=== PATIENT | female | born 1990 | race Caucasian/White ===

== ENCOUNTER 2016-07-18 10:14 | Emergency (ER) | payer OTHER ==
[2016-07-18 10:30] VITALS: BP 119/72; PULSE 99; TEMP 97.6; BMI 24.2
== END 2016-07-18 10:47 | disposition left against medical advice (07) ==
LOC: JERFT 10:14
DX: Z53.21 Procedure and treatment not carried out due to patient leaving prior to being seen by health care provider (principal)
CPT/HCPCS: 99281-25

== ENCOUNTER 2017-08-26 13:25 | Emergency (ER) | payer OTHER ==
[2017-08-26 13:43] VITALS: TEMP 97.6; BMI 24.8
--- NOTE | 2017-08-26 14:38 | PDOC ---
History of Present Illness <Junito Little - Last Filed: 08/26/17 16:51> - General History Source: Patient Exam Limitations: No Limitations - History of Present Illness Initial Comments: 08/26/17 16:29 The patient is a 8 weeks 27 year old female , with no significant past medical history, who presents to the emergency department, for a second evaluation of an ultrasound taken earlier today as an outpatient. The patient states she was seen earlier today at an outpatient clinic and had an ultrasound performed which showed IUP but no heart rate. The patient states she was told if she wanted a second opinion to come to the ED. She denies any recent vaginal bleeding or discharge. She denies any recent abdominal pain or cramping. She denies recent fevers, chills, headache or dizziness. She denies recent nausea, vomit, diarrhea or constipation. She denies recent dysuria, frequency, urgency or hematuria. She denies recent chest pain or shortness of breath. Allergies: Aspirin, Penicillins <Troy King - Last Filed: 08/26/17 16:59> - General Chief Complaint: Pain Stated Complaint: ABD PAIN (8 WKS ) Time Seen by Provider: 08/26/17 14:00 Past History - Past Medical History Asthma: No Cancer: No Cardiac Disorders: No COPD: No Diabetes: No HTN: No Seizures: No Thyroid Disease: No - Reproductive History (#): 1 Para: 0 Therapeutic (s) & number: No - Immunization History Td Vaccination: Yes Immunization Up to Date: Yes - Suicide/Smoking/Psychosocial Hx Smoking Status: No Smoking History: Never smoked Years of Tobacco Use: 0 Have you smoked in the past 12 months: No Number of Cigarettes Smoked Daily: 0 Cigars Per Day: 0 Information on smoking cessation initiated: No Hx Alcohol Use: No Drug/Substance Use Hx: No Substance Use Type: None Hx Substance Use Treatment: No <Junito Little - Last Filed: 08/26/17 16:51> <Troy King - Last Filed: 08/26/17 16:59> - Past Medical History Allergies/Adverse Reactions: Allergies Allergy/AdvReac Type Severity Reaction Status Date / Time aspirin Allergy Intermediate Rash Verified 08/26/17 13:41 Penicillins Allergy Mild Hives Verified 08/26/17 13:41 Home Medications: Ambulatory Orders NK [No Known Home Medication] 02/18/16 Review of Systems - Review of Systems Constitutional: No: Chills, Fever Respiratory: No: Cough, Shortness of Breath Cardiac (ROS): No: Chest Pain ABD/GI: No: Diarrhea, Nausea, Vomiting : No: Dysuria, Frequency All Other Systems: Reviewed and Negative <Junito Little - Last Filed: 08/26/17 16:51> *Physical Exam - Vital Signs Last Vital Signs Temp Pulse Resp BP Pulse Ox 97.6 F 75 18 101/58 100 08/26/17 13:41 08/26/17 13:41 08/26/17 13:41 08/26/17 13:41 08/26/17 13:41 <Junito Little - Last Filed: 08/26/17 16:51> - Vital Signs Last Vital Signs Temp Pulse Resp BP Pulse Ox 97.6 F 75 18 101/58 100 08/26/17 13:41 08/26/17 13:41 08/26/17 13:41 08/26/17 13:41 08/26/17 13:41 - Physical Exam Comments: 08/26/17 16:30 GENERAL: The patient is awake, alert, and fully oriented, in no acute distress. HEAD: Normal with no signs of trauma. EYES: Pupils equal, round and reactive to light, extraocular movements intact, sclera anicteric, conjunctiva clear with no pallor. ENT: Ears normal, nares patent, oropharynx clear without exudates. Moist mucous membranes. NECK: Normal range of motion, supple without lymphadenopathy, JVD, or masses. LUNGS: Breath sounds equal, clear to auscultation bilaterally. No wheeze/ crackles. HEART: Regular rate and rhythm, normal S1 and S2 without murmur or rub. ABDOMEN: Soft/nontender/nondistended. BS wnl. No guarding or rebound. No palpable masses. No hepatosplenomegaly. EXTREMITIES: Normal range of motion, no edema. No clubbing or cyanosis. No cords, erythema, or tenderness. NEUROLOGICAL: Cranial nerves II through XII grossly intact. Normal speech, normal gait. PSYCH: Normal mood, normal affect. SKIN: Warm, Dry, normal turgor, no rashes or lesions noted. <Troy King - Last Filed: 08/26/17 16:59> ED Treatment Course - LABORATORY CBC & Chemistry Diagram: 08/26/17 14:40 <Nabor Littlefaele - Last Filed: 08/26/17 16:51> - LABORATORY CBC & Chemistry Diagram: 08/26/17 14:40 - ADDITIONAL ORDERS Additional order review: Laboratory Results 08/26/17 08/26/17 08/26/17 14:55 14:40 14:40 Beta HCG, Quant [id number] Urine Color Ltyellow Urine Appearance Clear Urine pH 6.0 Ur Specific [place] 1.023 Urine Protein Negative Urine Glucose (UA) Negative Urine Ketones Negative Urine Blood Negative Urine Nitrite Negative Urine Bilirubin Negative Urine Urobilinogen Negative Ur Leukocyte Esterase Trace Urine WBC (Auto) 2 Urine RBC (Auto) <1 Ur Epithelial Cells Rare Urine Mucus Rare Urine HCG, Qual Positive Blood Type O POSITIVE Antibody Screen Negative 08/26/17 14:40 RBC 4.30 MCV 81.8 MCHC 33.9 RDW 14.2 MPV 10.7 Neutrophils % 65.2 Lymphocytes % 28.6 D Monocytes % 5.1 Eosinophils % 0.6 Basophils % 0.5 - RADIOLOGY Radiograph Interpretation: 08/26/17 16:58 EXAM#: TYPE/EXAM: RESULT: [id number] US/TRANSVAGINAL US PREG HISTORY PROVIDED: evaluation. Real time examination of the pelvis arising both the transabdominal and transvaginal probes demonstrates the following: There is a single intrauterine with crown-rump measurements corresponding to a gestational age of 7 weeks 1 day. No heart motion was detected and this is suspicious for demise. Correlation with serial beta subunit hCG levels and follow-up ultrasonography is recommended. There is a small fluid collection adjacent to the gestational sac consistent with a subchorionic bleed. The ovaries are normal in size and texture with no adnexal masses or free pelvic fluid collections. IMPRESSION: Suspected demise of 7 weeks 1 day gestational age. Clinical and laboratory correlation and follow-up ultrasonography recommended. Please see above discussion. Reported By: Shawn Nolasco MD <Troy King - Last Filed: 08/26/17 16:59> Medical Decision Making - Medical Decision Making 08/26/17 15:36 A portion of this note was documented by scribe services under my direction. I have reviewed the details of the note, within reason, and agree with the documentation with the following case summary and management plan written by me. 27-year-old female LMP about 8 weeks presents for second opinion of outpatient ultrasound performed today that showed IUP but no heart rate. This was second ultrasound showing no heart rate, presents here for second opinion. Patient has no complaints of cramping or bleeding. Vital signs stable Exam is normal without abdominal tenderness or palpable mass 27-year-old female LMP about 8 weeks with possible incomplete miscarriage, first trimester. Check hCG Check ultrasound Discussed options and follow-up criteria 08/26/17 15:55 Labs and urinalysis are within normal limits, hCG 52,000, ultrasound pending. 08/26/17 16:51 Ultrasound shows IUP but no heart rate, concerning for demise and consistent with previous ultrasound performed at Dr. Alejandra's office. Patient made aware, agrees with discharge plan at this time and follow-up with the UTILITY INSPECTOR office for further instructions. Aware that may have spontaneous miscarriage versus possible need for D&C. <Junito Little - Last Filed: 08/26/17 16:51> *DC/Admit/Observation/Transfer <Junito Little - Last Filed: 08/26/17 16:51> - Attestations Scribe Attestion: 08/26/17 16:32 Documentation prepared by Troy King, acting as medical staff services coordinator for Junito Little MD. <Troy King - Last Filed: 08/26/17 16:59> Diagnosis at time of Disposition: Miscarriage - Discharge Dispostion Disposition: HOME Condition at time of disposition: Stable - Referrals Referrals: Brendon Krishna MD [Primary Care Provider] - Juan Ramon Magaña MD [Staff Physician] - - Patient Instructions Printed Discharge Instructions: DI for Miscarriage Additional Instructions: Activity as tolerated. Stay hydrated. Tylenol 1000 mg every 8 hours and/or ibuprofen 600 mg every 8 hours as needed for pain. An ultrasound today confirms no heartbeat, which is concerning for miscarriage. As discussed, you may have a heavy period or you may need to see her UTILITY INSPECTOR for further intervention. You should follow up with your UTILITY INSPECTOR as soon as possible regarding today's emergency department visit. Call tomorrow for further instructions. Return to the emergency department for any new or concerning symptoms, particularly severe pain or bleeding, fevers or chills, discharge.
[2017-08-26 14:56] LABS: BASO % 0.5 % (0-2.0); EOS % 0.6 % (0-4.5); HEMATOCRIT 35.2 % (32.4-45.2); HEMOGLOBIN 11.9 GM/dL (10.7-15.3); LYMPH % 28.6 % (8-40); MCH 27.7 pg (25.7-33.7); MCHC 33.9 g/dl (32.0-36.0); MEAN CELL VOLUME 81.8 fl (80-96); MEAN PLT VOLUME 10.7 fl (7.5-11.1); MONO % 5.1 % (3.8-10.2); NEUT % 65.2 % (42.8-82.8); PLATELET COUNT 201 K/MM3 (134-434); RDW 14.2 % (11.6-15.6); WHITE BLOOD COUNT 11.4 K/mm3 (4.0-10.0)
[2017-08-26 15:15] LABS: HCG,QUALITATIVE URINE POSITIVE
[2017-08-26 15:20] LABS: URINE APPEARANCE CLEAR; URINE BILIRUBIN NEGATIVE (NEGATIVE); URINE BLOOD NEGATIVE (NEGATIVE); URINE COLOR LTYELLOW; URINE GLUCOSE (UA) NEGATIVE (NEGATIVE); URINE KETONE NEGATIVE (NEGATIVE); URINE LEUK ESTERASE TRACE (NEGATIVE); URINE NITRITE NEGATIVE (NEGATIVE); URINE PROTEIN NEGATIVE (NEGATIVE); URINE UROBILINOGEN NEGATIVE mg/dL (0.2-1.0)
[2017-08-26 15:48] LABS: EPI CELLS RARE /HPF (FEW); URINE MUCUS RARE
[2017-08-26 17:00] VITALS: BP 102/57; PULSE 81
== END 2017-08-26 17:01 | disposition home or self-care (01) ==
LOC: JER 13:25
DX: O26.891 Other specified pregnancy related conditions, first trimester (principal); O02.1 Missed abortion; Z3A.01 Less than 8 weeks gestation of pregnancy
CPT/HCPCS: 36415; 76817-TC; 81003; 81015; 84702; 84703; 85025; 86850; 86900; 86901; 99282-25

== ENCOUNTER 2017-08-28 10:49 | Emergency (ER) | payer OTHER ==
[2017-08-28 11:03] VITALS: BMI 24.8
[2017-08-28] MEDS ORDERED: ACETAMINOPHEN 325 MG TABLET (FP) PO ONE (12:09)
[2017-08-28] MEDS ORDERED: METOCLOPRAMIDE HCL INJECTION 10 MG/2 ML VIAL IVPB ONE (12:09)
--- NOTE | 2017-08-28 12:12 | PDOC ---
History of Present Illness - General Chief Complaint: Pain, Acute Stated Complaint: MISCARRIAGE COMPLICATIONS Time Seen by Provider: 08/28/17 12:07 History Source: Patient - History of Present Illness Timing/Duration: reports: constant Quality: reports: moderate, cramping Past History - Past Medical History Allergies/Adverse Reactions: Allergies Allergy/AdvReac Type Severity Reaction Status Date / Time aspirin Allergy Intermediate Rash Verified 08/28/17 10:58 Penicillins Allergy Mild Hives Verified 08/28/17 10:58 Home Medications: Ambulatory Orders NK [No Known Home Medication] 02/18/16 Asthma: No Cancer: No Cardiac Disorders: No COPD: No Diabetes: No HTN: No Seizures: No Thyroid Disease: No Other medical history: DENIES. - Reproductive History (#): 1 Para: 0 Therapeutic (s) & number: No - Immunization History Td Vaccination: Yes Immunization Up to Date: Yes - Suicide/Smoking/Psychosocial Hx Smoking Status: No Smoking History: Never smoked Years of Tobacco Use: 0 Have you smoked in the past 12 months: No Number of Cigarettes Smoked Daily: 0 Cigars Per Day: 0 Hx Alcohol Use: No Drug/Substance Use Hx: No Substance Use Type: None Hx Substance Use Treatment: No Review of Systems - Review of Systems Constitutional: No: Chills, Fever ABD/GI: Yes: Abdominal cramping. No: Nausea, Vomiting : No: Dysuria, Discharge, Flank Pain *Physical Exam - Vital Signs Last Vital Signs Temp Pulse Resp BP Pulse Ox 98.1 F 76 19 114/73 100 08/28/17 10:59 08/28/17 10:59 08/28/17 10:59 08/28/17 10:59 08/28/17 10:59 - Physical Exam General Appearance: Yes: Appropriately Dressed. No: Apparent Distress HEENT: positive: Normal Voice Neck: positive: Supple Respiratory/Chest: negative: Respiratory Distress Gastrointestinal/Abdominal: positive: Tender (to lower abd diffusely), Soft Musculoskeletal: negative: CVA Tenderness Integumentary: positive: Dry, Warm Neurologic: positive: Fully Oriented, Alert, Normal Mood/Affect ED Treatment Course - LABORATORY CBC & Chemistry Diagram: 08/28/17 12:17 08/28/17 15:00 Medical Decision Making - Medical Decision Making 08/28/17 12:10 7-year-old female, , diagnosed with demise at 7 weeks on ultrasound 2 days ago and given OB follow-up. Beta was >50 K. Patient had no abdominal pain or bleeding at the time but now c/o lower abd cramping x 3 days. No vag bleed, dysuria, n/v/f/c. Has not yet had a chance to see her OB See exam Possibly missed AB @ 7weeks w/ abd pain No vag bleed Possible demise as no FHR on US in ED 2 days ago w/ beta>50K Stable in ED -labs and US -OB c/s 08/28/17 14:40 Beta and ultrasound roughly unchanged from previous visit with IUP at 7 weeks w / no FHR and beta of ~53 K. Patient remains stable with no abdominal pain or vaginal bleed. Will consult with OB for further recommendations 08/28/17 15:[address] Romano who states patient can follow-up with her in the office tomorrow at 10 AM to arrange possible suction D&C *DC/Admit/Observation/Transfer Diagnosis at time of Disposition: Missed - Discharge Dispostion Disposition: HOME Condition at time of disposition: Good - Referrals Referrals: Brendon Krishna MD [Primary Care Provider] - - Patient Instructions Printed Discharge Instructions: Miscarriage, Dealing With Miscarriage Additional Instructions: Please follow-up with Dr. Florinda Romano of [facility] tomorrow at [address] Romano's office is located at [address] [place] [address], [place] [address], [place] [address]. Phone number is [phone] - Post Discharge Activity
[2017-08-28] MEDS ORDERED: METOCLOPRAMIDE HCL INJECTION 10 MG/2 ML VIAL ONE (12:38)
[2017-08-28] MEDS ORDERED: ACETAMINOPHEN 325 MG TABLET (FP) ONE (12:38)
[2017-08-28 12:53] LABS: BASO % 0.6 % (0-2.0); EOS % 1.7 % (0-4.5); HEMATOCRIT 32.9 % (32.4-45.2); HEMOGLOBIN 11.5 GM/dL (10.7-15.3); MCH 28.7 pg (25.7-33.7); MCHC 35.1 g/dl (32.0-36.0); MEAN CELL VOLUME 81.7 fl (80-96); MEAN PLT VOLUME 10.5 fl (7.5-11.1); MONO % 5.8 % (3.8-10.2); NEUT % 64.9 % (42.8-82.8); PLATELET COUNT 205 K/MM3 (134-434); RBC 4.02 M/mm3 (3.60-5.2); RDW 14.5 % (11.6-15.6); WHITE BLOOD COUNT 9.8 K/mm3 (4.0-10.0)
--- NOTE | 2017-08-28 12:53 | PDOC ---
*Physical Exam - Vital Signs Last Vital Signs Temp Pulse Resp BP Pulse Ox 98.1 F 76 19 114/73 100 08/28/17 10:59 08/28/17 10:59 08/28/17 10:59 08/28/17 10:59 08/28/17 10:59 - Physical Exam Comments: 08/28/17 12:53 The patient was examined by [MAKI Hammond] under my direct supervision. I personally evaluated the patient. I concur with the above findings and the plan of care. ED Treatment Course - LABORATORY CBC & Chemistry Diagram: 08/28/17 12:17 - Medications Given in the ED: ED Medications Discontinued Medications Generic Name Dose Route Start Last Admin Trade Name Freq PRN Reason Stop Dose Admin Acetaminophen 650 mg 08/28/17 12:09 08/28/17 12:43 Tylenol - PO 08/28/17 12:10 650 mg ONCE ONE Administration Metoclopramide HCl 10 mg 08/28/17 12:09 08/28/17 12:43 Reglan Injection - IVPB 08/28/17 12:10 10 mg ONCE ONE Administration *DC/Admit/Observation/Transfer - Referrals Referrals: Brendon Krishna MD [Primary Care Provider] - - Patient Instructions - Post Discharge Activity
[2017-08-28 12:59] LABS: INR 1.03 (0.82-1.09); PROTHROMBIN TIME (PATIENT) 11.6 SEC (9.98-11.88)
[2017-08-28 13:31] LABS: URINE APPEARANCE CLEAR; URINE BILIRUBIN NEGATIVE (NEGATIVE); URINE BLOOD NEGATIVE (NEGATIVE); URINE COLOR LTYELLOW; URINE GLUCOSE (UA) NEGATIVE (NEGATIVE); URINE KETONE NEGATIVE (NEGATIVE); URINE LEUK ESTERASE TRACE (NEGATIVE); URINE NITRITE NEGATIVE (NEGATIVE); URINE PROTEIN NEGATIVE (NEGATIVE); URINE UROBILINOGEN NEGATIVE mg/dL (0.2-1.0)
[2017-08-28 13:37] LABS: EPI CELLS RARE /HPF (FEW); URINE MUCUS RARE
[2017-08-28 15:27] LABS: ALBUMIN 3.3 g/dl (3.4-5.0); ALK PHOS 57 U/L (45-117); ANION GAP 8 (8-16); BILIRUBIN,TOTAL 0.4 mg/dL (0.2-1.0); BLOOD UREA NITROGEN 10 mg/dL (7-18); CHLORIDE 107 mmol/L (98-107); CO2 21 mmol/L (21-32); CREATININE 0.6 mg/dL (0.55-1.02); GLUCOSE,RANDOM 80 mg/dL (74-106); POTASSIUM 3.8 mmol/L (3.5-5.1); SGOT/AST 10 U/L (15-37); SGPT/ALT 12 U/L (12-78); SODIUM 136 mmol/L (136-145); TOT PROT 6.2 g/dl (6.4-8.2)
[2017-08-28 15:50] VITALS: BP 127/78; PULSE 87; TEMP 98.6
== END 2017-08-28 15:50 | disposition home or self-care (01) ==
LOC: JER 10:49
PROC: 3E033GC Introduction of Other Therapeutic Substance into Peripheral Vein, Percutaneous Approach (ICD-10-PCS; principal; 2017-08-28)
DX: O02.1 Missed abortion (principal)
CPT/HCPCS: 36415; 76817-TC; 80053; 81003; 81015; 84702; 85025; 85610; 86850; 86900; 86901; 87491; 87591; 99283-25

== ENCOUNTER 2017-08-29 13:24 | Day surgery (SDC) | payer OTHER ==
[2017-08-29 13:55] VITALS: BMI 25.0
[2017-08-29] MEDS ORDERED: DEXAMETHASONE SOD PHOSPHATE 4 MG/1 ML VIAL ONE (16:35)
[2017-08-29] MEDS ORDERED: PROPOFOL 20 ML ONE (16:35)
[2017-08-29] MEDS ORDERED: MIDAZOLAM HCL 2 MG/2 ML SINGLE DOSE VIAL ONE (16:35)
[2017-08-29] MEDS ORDERED: LIDOCAINE HCL 2% 100 MG/5 ML DISP.SYRIN ONE (16:35)
[2017-08-29] MEDS ORDERED: ACETAMINOPHEN 325 MG TABLET (FP) PO PRN (17:20)
--- NOTE | 2017-08-29 17:20 | HP ---
Admitting History and Physical - Admission Chief Complaint: Missed History of Present Illness: 27 yo @ 7 weeks gestation seen in office today after an ER visit the day prior where she was diagnosed with missed . A suction D&C was scheduled. She's now pre op for suction D&C. History Source: Patient Limitations to Obtaining History: No Limitations - Past Medical History ...LMP: 09/18/12 ...: Yes ...: 2 ...Para: 1 Heme/Onc: Yes: Sickle Cell Trait - Past Surgical History Past Surgical History: Yes: None - Smoking History Smoking history: Never smoked Have you smoked in the past 12 months: No Aproximately how many cigarettes per day: 0 - Alcohol/Substance Use Hx Alcohol Use: No History of Substance Use: reports: None - Social History History of Recent Travel: No Home Medications - Allergies Allergies/Adverse Reactions: Allergies Allergy/AdvReac Type Severity Reaction Status Date / Time aspirin Allergy Intermediate Rash Verified 08/28/17 10:58 Penicillins Allergy Mild Hives Verified 08/28/17 10:58 - Home Medications Home Medications: Ambulatory Orders NK [No Known Home Medication] 02/18/16 Review of Systems - Review of Systems Constitutional: reports: No Symptoms Eyes: reports: No Symptoms HENT: reports: No Symptoms Neck: reports: No Symptoms Cardiovascular: reports: No Symptoms Respiratory: reports: No Symptoms Gastrointestinal: reports: No Symptoms Genitourinary: reports: No Symptoms Breasts: reports: No Symptoms Reported Musculoskeletal: reports: No Symptoms Integumentary: reports: No Symptoms Neurological: reports: No Symptoms Endocrine: reports: No Symptoms Hematology/Lymphatic: reports: No Symptoms Psychiatric: reports: No Symptoms Pain Intensity: 0 Physical Examination Vital Signs: Vital Signs Temperature 98.0 F 08/29/17 13:39 Pulse Rate 59 L 08/29/17 13:39 Respiratory Rate 16 08/29/17 13:39 Blood Pressure 121/69 08/29/17 13:39 O2 Sat by Pulse Oximetry (%) 100 08/29/17 14:04 Constitutional: Yes: Well Nourished Eyes: Yes: Conjunctiva Clear HENT: Yes: Atraumatic Neck: Yes: Supple Cardiovascular: Yes: Regular Rate and Rhythm Respiratory: Yes: Regular Gastrointestinal: Yes: Normal Bowel Sounds Breast(s): Yes: WNL Musculoskeletal: Yes: WNL Neurological: Yes: Alert, Oriented ...Motor Strength: WNL Psychiatric: Yes: Alert, Oriented Assessment/Plan Missed Pre op for suction D&C Consent signed Anesthesia to see patient
[2017-08-29] MEDS ORDERED: KETOROLAC TROMETHAMINE 30 MG/1 ML VIAL ONE (17:22)
[2017-08-29] MEDS ORDERED: ONDANSETRON 4 MG/2 ML VIAL IVPUSH PRN (17:22)
--- NOTE | 2017-08-29 17:22 | OP ---
Operative Note - Note: Operative Date: 08/29/17 Pre-Operative Diagnosis: Missed Operation: Suction D&C Findings: Cervical os closed Intrauterine product of conception Post-Operative Diagnosis: Same as Pre-op Surgeon: Florinda Romano Anesthesia: General Specimens Removed: Product of conception Estimated Blood Loss (mls): 20
[2017-08-29] MEDS ORDERED: KETOROLAC TROMETHAMINE 30 MG/1 ML VIAL IVPUSH ONE (17:30)
[2017-08-29] MEDS ORDERED: LACTATED RINGERS SOLUTION 1,000 ML IV SCH (17:30)
[2017-08-29 18:16] VITALS: TEMP 98.4
[2017-08-29 19:09] VITALS: BP 126/84; PULSE 85
--- NOTE | 2017-09-02 13:25 | PATH ---
Surgical Pathology Report Patient Name: DANNIE RUEDA [facility]. Rec. #: [id number] /Age/Gender: 1990 (Age: 27) / F Account: [id number] Location: [facility] Taken: 08/30/2017 Received: 08/30/2017 Reported: 09/02/2017 Physicians: Florinda Romano M.D. Specimen(s) Received PRODUCTS OF CONCEPTION Clinical History Missed Final Diagnosis Uterine contents, evacuation: chorionic villi consistent with products of conception. Electronically Signed Jeanmarie Gil M.D. Gross Description Received in formalin labeled "contents of conception," is a 9.0 x 7.0 x 0.9 cm aggregate of royal-brown soft tissue fragments. Villous tissue is identified. No somatic tissue is identified. A commissary representative portion is submitted in one cassette. /08/30/201708/30/2017
== END 2017-08-29 19:09 | disposition home or self-care (01) ==
LOC: JASU-SURG 13:24
PROVIDERS: ATTEND Obstetrics & Gynecology
PROC: 10D17ZZ Extraction of Products of Conception, Retained, Via Natural or Artificial Opening (ICD-10-PCS; principal; 2017-08-29 16:00)
DX: O02.1 Missed abortion (principal)
CPT/HCPCS: 88305-TC; 94760

== ENCOUNTER 2018-01-23 10:47 | Emergency (ER) | payer OTHER ==
[2018-01-23 10:58] VITALS: BMI 26.3
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
[2018-01-23 12:26] LABS: HEMATOCRIT 35.6 % (32.4-45.2); HEMOGLOBIN 12.3 GM/dL (10.7-15.3); MCH 27.7 pg (25.7-33.7); MCHC 34.6 g/dl (32.0-36.0); MEAN CELL VOLUME 80.1 fl (80-96); MEAN PLT VOLUME 10.2 fl (7.5-11.1); PLATELET COUNT 242 K/MM3 (134-434); RBC 4.45 M/mm3 (3.60-5.2); RDW 15.9 % (11.6-15.6); WHITE BLOOD COUNT 8.5 K/mm3 (4.0-10.0)
[2018-01-23 12:36] LABS: URINE APPEARANCE CLEAR; URINE BILIRUBIN NEGATIVE (<2.0 mg/dL); URINE COLOR LTYELLOW; URINE GLUCOSE (UA) NEGATIVE (NEGATIVE); URINE KETONE NEGATIVE (NEGATIVE); URINE LEUK ESTERASE NEGATIVE (NEGATIVE); URINE NITRITE NEGATIVE (NEGATIVE); URINE PROTEIN NEGATIVE (NEGATIVE); URINE UROBILINOGEN NEGATIVE mg/dL (0.2-1.0)
[2018-01-23 12:45] LABS: HCG,QUALITATIVE URINE POSITIVE
[2018-01-23 12:47] LABS: ALBUMIN 3.6 g/dl (3.4-5.0); ANION GAP 9 (8-16); BILIRUBIN,TOTAL 0.5 mg/dL (0.2-1.0); BLOOD UREA NITROGEN 8 mg/dL (7-18); CALCIUM 8.6 mg/dL (8.5-10.1); CHLORIDE 105 mmol/L (98-107); CO2 23 mmol/L (21-32); CREATININE 0.6 mg/dL (0.55-1.02); GLUCOSE,RANDOM 76 mg/dL (74-106); SGPT/ALT 21 U/L (12-78); SODIUM 137 mmol/L (136-145); TOT PROT 7.1 g/dl (6.4-8.2)
[2018-01-23 13:08] LABS: ALK PHOS 64 U/L (45-117)
[2018-01-23 13:41] LABS: POTASSIUM 4.5 mmol/L (3.5-5.1); SGOT/AST 19 U/L (15-37)
[2018-01-23 16:16] VITALS: BP 121/70; PULSE 67; TEMP 97.2
== END 2018-01-23 16:15 | disposition home or self-care (01) ==
LOC: JER 10:47
DX: O26.891 Other specified pregnancy related conditions, first trimester (principal); O02.1 Missed abortion; Z3A.01 Less than 8 weeks gestation of pregnancy
CPT/HCPCS: 36415; 76817-TC; 80053; 81003; 84702; 84703; 85027; 86850; 86900; 86901; 99282-25

== ENCOUNTER 2018-05-04 15:23 | Emergency (ER) | payer OTHER ==
[2018-05-04 15:34] VITALS: BP 135/86; PULSE 63; TEMP 98.7; BMI 25.4
[2018-05-04 16:32] LABS: BASO % 0.8 % (0-2.0); HEMATOCRIT 36.9 % (32.4-45.2); HEMOGLOBIN 13.1 GM/dL (10.7-15.3); MCH 28.6 pg (25.7-33.7); MCHC 35.5 g/dl (32.0-36.0); MEAN CELL VOLUME 80.5 fl (80-96); MEAN PLT VOLUME 9.9 fl (7.5-11.1); MONO % 6.9 % (3.8-10.2); NEUT % 62.3 % (42.8-82.8); PLATELET COUNT 285 K/MM3 (134-434); RBC 4.58 M/mm3 (3.60-5.2); RDW 14.3 % (11.6-15.6); WHITE BLOOD COUNT 9.6 K/mm3 (4.0-10.0)
[2018-05-04 16:34] LABS: URINE APPEARANCE CLEAR; URINE BILIRUBIN NEGATIVE (<2.0 mg/dL); URINE COLOR LTYELLOW; URINE GLUCOSE (UA) NEGATIVE (NEGATIVE); URINE KETONE NEGATIVE (NEGATIVE); URINE LEUK ESTERASE 1+ (NEGATIVE); URINE NITRITE NEGATIVE (NEGATIVE); URINE PROTEIN NEGATIVE (NEGATIVE); URINE UROBILINOGEN NEGATIVE mg/dL (0.2-1.0)
--- NOTE | 2018-05-04 16:36 | PDOC ---
History of Present Illness - General Chief Complaint: Chest Pain Stated Complaint: CHEST PRESSURE Time Seen by Provider: 05/04/18 15:48 History Source: Patient - History of Present Illness Presenting Symptoms: Chest Pain Past History - Past Medical History Allergies/Adverse Reactions: Allergies Allergy/AdvReac Type Severity Reaction Status Date / Time aspirin Allergy Intermediate Rash Verified 05/04/18 15:34 Penicillins Allergy Mild Hives Verified 05/04/18 15:34 Home Medications: Ambulatory Orders Prenat 115/Iron Fum/Folic/Dss [ 19 Tablet] 1 each PO DAILY 01/24/18 Anemia: Yes Asthma: No Cancer: No Cardiac Disorders: No CVA: No COPD: No CHF: No Dementia: No Diabetes: No GI Disorders: No Disorders: No HTN: No Hypercholesterolemia: No Liver Disease: No Seizures: No Thyroid Disease: No - Reproductive History (#): 1 Para: 0 Therapeutic (s) & number: No - Immunization History Td Vaccination: Yes Immunization Up to Date: Yes - Suicide/Smoking/Psychosocial Hx Smoking Status: No Smoking History: Never smoked Years of Tobacco Use: 0 Have you smoked in the past 12 months: No Number of Cigarettes Smoked Daily: 0 Cigars Per Day: 0 Hx Alcohol Use: No Drug/Substance Use Hx: No Substance Use Type: None Hx Substance Use Treatment: No Cardiac Specific PMH - Complaint Specific PMHX Pacemaker: No Review of Systems - Review of Systems Constitutional: No: Chills, Fever Respiratory: Yes: Shortness of Breath. No: Cough Cardiac (ROS): Yes: Chest Pain. No: Lightheadedness, Palpitations, Syncope Integumentary: Yes: Bruising *Physical Exam - Vital Signs Last Vital Signs Temp Pulse Resp BP Pulse Ox 98.7 F 63 18 135/86 100 05/04/18 15:28 05/04/18 15:28 05/04/18 15:28 05/04/18 15:28 05/04/18 15:28 - Physical Exam General Appearance: Yes: Appropriately Dressed. No: Apparent Distress HEENT: positive: Normal Voice Neck: positive: Supple Respiratory/Chest: positive: Lungs Clear, Normal Breath Sounds. negative: Respiratory Distress Cardiovascular: positive: Regular Rate, S1, S2 Integumentary: positive: Dry, Warm, Bruising (large ecchymosis to proximal inner R thigh, several smaller similar lesions to LLE and torso) Neurologic: positive: Fully Oriented, Alert, Normal Mood/Affect Heart Score/ECG Review - ECG Intrepretation Comment:: 05/04/18 16:52 Twelve-lead EKG was performed and reviewed by me. There is normal sinus rhythm with a normal rate. The axis is normal. The intervals are normal. There are no ST or T wave abnormalities. Impression: Normal twelve-lead EKG ED Treatment Course - LABORATORY CBC & Chemistry Diagram: 05/04/18 16:18 05/04/18 16:18 - ADDITIONAL ORDERS Additional order review: Laboratory Results 05/04/18 05/04/18 05/04/18 16:18 16:18 16:18 PT with INR 12.50 INR 1.06 Sodium 140 Potassium 4.1 Chloride 108 H Carbon Dioxide 26 Anion Gap 7 L BUN 14 Creatinine 1.1 Creat Clearance w eGFR 59.14 Random Glucose 81 Calcium 8.9 Total Bilirubin 0.4 AST 15 ALT 20 Alkaline Phosphatase 83 Total Protein 7.1 Albumin 3.9 Urine Color Ltyellow Urine Appearance Clear Urine pH 6.0 Ur Specific [place] 1.019 Urine Protein Negative Urine Glucose (UA) Negative Urine Ketones Negative Urine Blood Negative Urine Nitrite Negative Urine Bilirubin Negative Urine Urobilinogen Negative Ur Leukocyte Esterase 1+ H Urine WBC (Auto) 4 Urine RBC (Auto) 6 Ur Epithelial Cells Rare Urine Mucus Rare Urine HCG, Qual Negative 05/04/18 16:18 RBC 4.58 MCV 80.5 MCHC 35.5 RDW 14.3 MPV 9.9 Neutrophils % 62.3 Lymphocytes % 28.0 Monocytes % 6.9 Eosinophils % 2.0 D Basophils % 0.8 - RADIOLOGY Radiology Studies Ordered: Category Date Time Status CHEST PA & LAT [RAD] Stat Radiology 05/04/18 16:13 Taken Medical Decision Making - Medical Decision Making 05/04/18 16:32 28-year-old F, denies any past medical history, here with multiple complaints including chest pain that started today, substernal, pressure-like in nature, intermittent w/ no exacerbating or alleviating factors. Also reports possible shortness of breath. No diaphoresis, nausea or vomiting. Had similar pain last week that self resolved. No illicit drug use, and no obvious risk factors for DVT/PE. No significant family history. Patient also complaining of spontaneous bruising throughout body 1-2 weeks. No history of same. Denies new medications, change in diet or significant fmhx. See exam CP Recurrent No illicit drug use No sig fmhx PERCs out Stable w/ unremarkable exam -ekg -cxr Spontaneous ecchymosis Multiple ecchymosis of varying sizes throughout body (UE/LE and torso), some painful to touch -labs pending 05/04/18 17:11 EKG/CXR and labs all wnl. Pt stable for discharge to f/u with her PMD for further evaluation *DC/Admit/Observation/Transfer Diagnosis at time of Disposition: Spontaneous ecchymoses Chest pain Qualifiers: Chest pain type: unspecified Qualified Code(s): R07.9 - Chest pain, unspecified - Discharge Dispostion Disposition: HOME Condition at time of disposition: Good - Referrals Referrals: Brendon Krishna MD [Primary Care Provider] - - Patient Instructions Additional Instructions: The cause of your symptoms are unclear at this time as your labs, EKG and chest x-ray were all normal. If her symptoms persist, please make an appointment to be further evaluated by your PMD - Post Discharge Activity
[2018-05-04 16:43] LABS: EPI CELLS RARE /HPF (FEW); URINE MUCUS RARE
[2018-05-04 16:44] LABS: INR 1.06 (0.83-1.09); PROTHROMBIN TIME (PATIENT) 12.5 SEC (9.7-13.0)
[2018-05-04 16:52] LABS: HCG,QUALITATIVE URINE Negative
[2018-05-04 16:54] LABS: ALBUMIN 3.9 g/dl (3.4-5.0); ALK PHOS 83 U/L (45-117); ANION GAP 7 MMOL/L (8-16); BILIRUBIN,TOTAL 0.4 mg/dL (0.2-1); BLOOD UREA NITROGEN 14 mg/dL (7-18); CALCIUM 8.9 mg/dL (8.5-10.1); CHLORIDE 108 mmol/L (98-107); CO2 26 mmol/L (21-32); CREATININE 1.1 mg/dL (0.55-1.3); GLUCOSE,RANDOM 81 mg/dL (74-106); POTASSIUM 4.1 mmol/L (3.5-5.1); SGOT/AST 15 U/L (15-37); SGPT/ALT 20 U/L (13-61); SODIUM 140 mmol/L (136-145); TOT PROT 7.1 g/dl (6.4-8.2)
--- NOTE | 2018-05-05 10:36 | EKG ---
Test Reason : Blood Pressure : / mmHG Vent. Rate : 065 BPM Atrial Rate : 065 BPM P-R Int : 150 ms QRS Dur : 086 ms QT Int : 418 ms P-R-T Axes : 004 082 055 degrees QTc Int : 434 ms NORMAL SINUS RHYTHM NORMAL ECG NO PREVIOUS ECGS AVAILABLE Confirmed by BISHOP VIEYRA MD ([id number]) on 05/05/2018 10:36:12 AM Referred By: Confirmed By:BISHOP VIEYRA MD
== END 2018-05-04 17:15 | disposition home or self-care (01) ==
LOC: JERFT 15:23
DX: R07.9 Chest pain, unspecified (principal); R23.3 Spontaneous ecchymoses
CPT/HCPCS: 36415; 71046-TC-FY; 80053; 81003; 81015; 84703; 85025; 85610; 93005; 93010; 99281-25

== ENCOUNTER 2018-09-24 11:06 | Emergency (ER) | payer OTHER ==
[2018-09-24 11:22] VITALS: BP 118/66; PULSE 85; TEMP 97.9; BMI 27.1
[2018-09-24 12:38] LABS: EPI CELLS 8.4 /HPF (0-5); HYALINE CASTS 4 /hpf (0-8); URINE APPEARANCE CLOUDY; URINE BACTERIA 277.1 /hpf (NEGATIVE); URINE BILIRUBIN NEGATIVE (NEGATIVE); URINE COLOR YELLOW; URINE GLUCOSE (UA) NEGATIVE (NEGATIVE); URINE KETONE NEGATIVE (NEGATIVE); URINE LEUK ESTERASE 2+ (NEGATIVE); URINE NITRITE NEGATIVE (NEGATIVE); URINE PROTEIN NEGATIVE (NEGATIVE); URINE RBC 2 /hpf (0-4); URINE UROBILINOGEN 0.2 mg/dL (0.2-1.0); URINE WBC 37 /hpf (0-5)
--- NOTE | 2018-09-24 12:58 | PDOC ---
History of Present Illness - General Chief Complaint: Back Pain Stated Complaint: 15 WEEK W[place]/BACK PAIN Time Seen by Provider: 09/24/18 12:05 History Source: Patient Exam Limitations: No Limitations - History of Present Illness Associated Symptoms: denies: fever/chills Past History - Travel Traveled outside of the country in the last 30 days: No Close contact w/someone who was outside of country & ill: No - Past Medical History Allergies/Adverse Reactions: Allergies Allergy/AdvReac Type Severity Reaction Status Date / Time aspirin Allergy Intermediate Rash Verified 09/24/18 11:19 Penicillins Allergy Mild Hives Verified 09/24/18 11:19 Home Medications: Ambulatory Orders Prenat 115/Iron Fum/Folic/Dss [ 19 Tablet] 1 each PO DAILY 01/24/18 Acetaminophen 325 mg PO ACDIN 7 Days #30 tablet 09/24/18 Nitrofurantoin Monohyd/M-Cryst [Macrobid -] 100 mg PO BID #14 capsule 09/24/18 Anemia: Yes Asthma: No Cancer: No Cardiac Disorders: No CVA: No COPD: No CHF: No Dementia: No Diabetes: No GI Disorders: No Disorders: No HTN: No Hypercholesterolemia: No Liver Disease: No Seizures: No Thyroid Disease: No Other medical history: BACK PROBLEMS - Reproductive History (#): 1 Para: 0 Therapeutic (s) & number: No - Immunization History Td Vaccination: Yes Immunization Up to Date: Yes - Suicide/Smoking/Psychosocial Hx Smoking Status: No Smoking History: Never smoked Years of Tobacco Use: 0 Have you smoked in the past 12 months: No Number of Cigarettes Smoked Daily: 0 Cigars Per Day: 0 Hx Alcohol Use: No Drug/Substance Use Hx: No Substance Use Type: None Hx Substance Use Treatment: No Review of Systems - Review of Systems Constitutional: No: Chills, Fever ABD/GI: No: Abdominal Distended, Diarrhea, Difficulty Swallowing, Nausea, Vomiting : No: Burning, Dysuria, Discharge, Frequency, Flank Pain, Hematuria, Urgency Musculoskeletal: Yes: Back Pain. No: Joint Pain, Muscle Weakness, Neck Pain Neurological: No: Numbness, Paresthesia, Tingling, Tremors, Weakness, Unsteady Gait, Ataxia *Physical Exam - Vital Signs Last Vital Signs Temp Pulse Resp BP Pulse Ox 97.9 F 85 18 118/66 99 09/24/18 11:20 09/24/18 11:20 09/24/18 11:20 09/24/18 11:20 09/24/18 11:20 - Physical Exam General Appearance: Yes: Nourished Respiratory/Chest: positive: Lungs Clear, Normal Breath Sounds Cardiovascular: positive: Regular Rhythm, Regular Rate, S1, S2 Musculoskeletal: positive: Normal Inspection Integumentary: positive: Normal Color Neurologic: positive: fire investigation lieutenant II-XII NML intact, Fully Oriented, Alert ED Treatment Course - ADDITIONAL ORDERS Additional order review: Laboratory Results 09/24/18 12:11 Urine Color Yellow Urine Appearance Cloudy Urine pH 7.0 Ur Specific [place] 1.025 Urine Protein Negative Urine Glucose (UA) Negative Urine Ketones Negative Urine Blood Negative Urine Nitrite Negative Urine Bilirubin Negative Urine Urobilinogen 0.2 Ur Leukocyte Esterase 2+ H Urine WBC (Auto) 37 Urine RBC (Auto) 2 Urine Casts (Auto) 4 U Epithel Cells (Auto) 8.4 Urine Bacteria (Auto) 277.1 Medical Decision Making - Medical Decision Making 09/24/18 16:25 28y/o F 15wks with atrauamtic LBP radiating to L leg X 2 days, pt denies UTI sx, trauma, f/c, b/b incontinence or saddles anesthesia. She took some tylenol with little relief exam with + SLR @ 45 degrees on the left ua + leukos/bacterial given state, i will tx for UTI ucx sent Tylenol for sciatic pain *DC/Admit/Observation/Transfer Diagnosis at time of Disposition: Abnormal urine finding, Sciatica of left side - Discharge Dispostion Disposition: HOME Condition at time of disposition: Stable Decision to Admit order: No - Prescriptions Prescriptions: Acetaminophen 325 mg PO ACDIN 7 Days #30 tablet Nitrofurantoin Monohyd/M-Cryst [Macrobid -] 100 mg PO BID #14 capsule - Referrals - Patient Instructions Printed Discharge Instructions: DI for Back Pain With Sciatica Additional Instructions: Your Urine test was abnormal today. This could be a possible early urinary tract infection area and antibiotics as this sent to pharmacy. Please follow-up which V BELT INSPECTOR in the next 2-3 days for reassessment. Please return to the Emergency Department if worsening symptoms occurs. - Post Discharge Activity
== END 2018-09-24 13:20 | disposition home or self-care (01) ==
LOC: JERFT 11:06
DX: O26.892 Other specified pregnancy related conditions, second trimester (principal); M54.32 Sciatica, left side; Z3A.15 15 weeks gestation of pregnancy; R82.90 Unspecified abnormal findings in urine
CPT/HCPCS: 81003; 87086; 99281-25

== ENCOUNTER 2019-02-28 17:08 | Inpatient (IN) | payer OTHER ==
[2019-02-28] MEDS ORDERED: ELECTROLYTE-148 SOLN 1,000 ML IV SCH (17:15)
[2019-02-28] MEDS ORDERED: CLINDAMYCIN 900 MG PREMIX IVPB 900 MG/50 ML BAG IVPB STA (17:30)
[2019-02-28] MEDS ORDERED: CLINDAMYCIN PHOSPHATE 600 MG/4 ML VIAL ONE (17:37)
[2019-02-28 18:13] VITALS: BMI 33.5
[2019-02-28 18:49] LABS: BASO % 0.2 % (0-2.0); EOS % 0.6 % (0-4.5); HEMATOCRIT 35.1 % (32.4-45.2); HEMOGLOBIN 11.8 GM/dL (10.7-15.3); LYMPH % 17.7 % (8-40); MCH 27.6 pg (25.7-33.7); MCHC 33.7 g/dl (32.0-36.0); MEAN PLT VOLUME 10.7 fl (7.5-11.1); NEUT % 74.5 % (42.8-82.8); PLATELET COUNT 208 K/MM3 (134-434); RBC 4.27 M/mm3 (3.60-5.2); RDW 16.1 % (11.6-15.6); WHITE BLOOD COUNT 13.1 K/mm3 (4.0-10.0)
[2019-02-28 19:14] LABS: BLOOD UREA NITROGEN 9.6 mg/dL (7-18); CALCIUM 8.8 mg/dL (8.5-10.1); CREATININE 0.7 mg/dL (0.55-1.3)
[2019-02-28 19:16] LABS: INR 0.96 (0.83-1.09); PROTHROMBIN TIME (PATIENT) 11.3 SEC (9.7-13.0)
[2019-02-28 19:18] LABS: ACTIVATED PTT 28.4 SECONDS (25.2-36.5)
[2019-02-28] MEDS ORDERED: PROMETHAZINE HCL 25 MG/1 ML VIAL IVPB ONE (21:40)
[2019-02-28] MEDS ORDERED: BUTORPHANOL TARTRATE 1 MG/ML VIAL IVPB ONE (21:40)
[2019-02-28] MEDS ORDERED: BUTORPHANOL TARTRATE 1 MG/ML VIAL ONE ×2 (21:43)
[2019-02-28] MEDS ORDERED: PROMETHAZINE HCL 25 MG/1 ML VIAL ONE (21:44)
[2019-02-28] MEDS: CLINDAMYCIN 600MG PREMIX IVPB 600 MG/50 ML BAG IVPB SCH (23:30)
[2019-03-01] MEDS ORDERED: CLINDAMYCIN PHOSPHATE 600 MG/4 ML VIAL ONE (00:21)
[2019-03-01] MEDS ORDERED: FENTANYL/BUPIVACAINE/NS/PF - PCEA - 50 ML DISP.SYRIN EP ONE (00:42)
[2019-03-01] MEDS ORDERED: NALOXONE HCL 0.4 MG/ML VIAL IVPUSH PRN (01:29)
[2019-03-01] MEDS ORDERED: FENTANYL/BUPIVACAINE/NS/PF - PCEA - 50 ML DISP.SYRIN EP SCH (01:30)
--- NOTE | 2019-03-01 02:09 | HP ---
Past Medical History - Primary Care Physician PCP:: Florinda Romano - Admission Chief Complaint: SROM History of Present Illness: 29 yo edc 03/13/19 EGA 38.1 weeks with c/o of SROmat 430pm and labor NSVDx1 7 lbs GBS positive History Source: Patient Limitations to Obtaining History: No Limitations - Past Medical History ...: 4 ...Para: 1 ...Term: 1 ...: 0 ...Spon : 2 ...Induced : 0 ...Multiple Gestation: 0 ...EDC by [facility]: 03/13/19 Heme/Onc: Yes: Sickle Cell Trait - Past Surgical History Past Surgical History: Yes: None Hx Myomectomy: No Hx Transabdominal Cerclage: No - Smoking History Smoking history: Never smoked Have you smoked in the past 12 months: No Aproximately how many cigarettes per day: 0 - Alcohol/Substance Use Hx Alcohol Use: No History of Substance Use: reports: None - Social History Usual Living Arrangement: Yes: With Spouse History of Recent Travel: No Home Medications - Allergies Allergies/Adverse Reactions: Allergies Allergy/AdvReac Type Severity Reaction Status Date / Time aspirin Allergy Intermediate Rash Verified 02/28/19 18:05 Penicillins Allergy Mild Hives Verified 02/28/19 18:05 - Home Medications Home Medications: Ambulatory Orders Prenat 115/Iron Fum/Folic/Dss [ 19 Tablet] 1 each PO DAILY 01/24/18 Review of Systems - Review of Systems Constitutional: reports: No Symptoms Eyes: reports: No Symptoms HENT: reports: No Symptoms Neck: reports: No Symptoms Cardiovascular: reports: No Symptoms Respiratory: reports: No Symptoms Gastrointestinal: reports: No Symptoms Genitourinary: reports: No Symptoms Breasts: reports: No Symptoms Reported Musculoskeletal: reports: No Symptoms Integumentary: reports: No Symptoms Neurological: reports: No Symptoms Endocrine: reports: No Symptoms Hematology/Lymphatic: reports: No Symptoms Psychiatric: reports: No Symptoms Physical Exam - Maternity Vital Signs: Vital Signs Temperature 98.1 F 03/01/19 02:00 Pulse Rate 86 02/28/19 23:00 Respiratory Rate 20 02/28/19 23:00 Blood Pressure 123/86 02/28/19 23:00 O2 Sat by Pulse Oximetry (%) Constitutional: Yes: Well Nourished, No Distress Neck: Yes: WNL Lungs: Clear to auscultation Breast(s): Yes: WNL - Abdominal Exam/OB Fundal Height: 38 Number of Fetuses: Single Presentation: Vertex Contractions: Yes Category: I - Vaginal Exam/OB Dilatation (cm): 3 Amniotic Membrane Status: Ruptured Presentation: Vertex/Position Station: -1 - Physical Exam Musculoskeletal: Yes: WNL Extremities: Yes: WNL Edema: No Psychiatric: Yes: WNL, Alert, Oriented - Labs Lab Results: CBC, BMP 02/28/19 18:30 02/28/19 18:30 Problem List - Problems (1) Spontaneous rupture of amniotic membranes Code(s): OMD6619 - (2) 38 weeks gestation of Code(s): Z3A.38 - 38 WEEKS GESTATION OF (3) GBS (group B Streptococcus carrier), +RV culture, currently Code(s): O99.820 - STREPTOCOCCUS B CARRIER STATE COMPLICATING Assessment/Plan IUP at 38 week srom GBS positive Plan anticipate vaginal delivery agueda
--- NOTE | 2019-03-01 02:12 | PN ---
Ante-Partal Exam - Subjective Subjective: Pt with urge to push Vital Signs: Vital Signs Temperature 98.1 F 03/01/19 02:00 Pulse Rate 86 02/28/19 23:00 Respiratory Rate 20 02/28/19 23:00 Blood Pressure 123/86 02/28/19 23:00 O2 Sat by Pulse Oximetry (%) Bleeding: No Headache: No Visual changes: No Right upper quadrant pain: No - Contractions Contractions: Yes Regularity: Regular Intensity: Unaware Monitor Mode: External - Exam during Labor Variability: Moderate Category: I Monitor Accelerations: Present Monitor Decelerations: None Exam: Vaginal Dilatation (cm): 9 Effacement (%): 100 Amniotic Membrane Status: Ruptured Presentation: Vertex - Intrapartum Hemorrhage Risk Risk Score: 0 Risk Level: Low Risk - Assessment/Plan Assessment/Plan: IUP at 38 week GBS positive SROM Plan anticipate vaginal delivery
[2019-03-01] MEDS ORDERED: WITCH HAZEL 50% (TUCKS) 40 PAD/JAR PAD TP PRN (02:13)
[2019-03-01] MEDS ORDERED: BENZOCAINE 28 GM HEMORRHOIDAL OINTMENT PR PRN (02:13)
[2019-03-01] MEDS ORDERED: METHYLERGONOVINE MALEATE 0.2 MG/1 ML AMP IM PRN (02:13)
[2019-03-01] MEDS ORDERED: BISACODYL 10 MG SUPP.RECT RC PRN (02:13)
[2019-03-01] MEDS ORDERED: BENZOCAINE 20% 57 GM BOTTLE TP PRN (02:13)
[2019-03-01] MEDS ORDERED: IBUPROFEN 600 MG TABLET (FP) PO PRN (02:13)
[2019-03-01] MEDS ORDERED: OXYTOCIN 20 UNITS in 0.9% NS 20 UNIT/1,000 ML INFUS.BAG IV SCH (02:15)
[2019-03-01] MEDS ORDERED: OXYTOCIN 20 UNITS in 0.9% NS 20 UNIT/1,000 ML INFUS.BAG IV ONE (02:24)
[2019-03-01] MEDS ORDERED: LIDOCAINE HCL 1% PRESERVATIVE FREE - 30ML VIAL ONE (02:57)
--- NOTE | 2019-03-01 03:18 | PN ---
Delivery - Delivery Vaginal Delivery: No Problems Type of Anesthesia: Local, Epidural Episiotomy/Laceration: Right Mediolateral EBL (cc): 300 Delivery, Single - Stages of Labor Placenta: Yes: Spontaneous - Condition of Infant Gender: Male Position: OA - Feeding Plan Initial Plan: Elected not to breastfeed exclusively throughout hospitalization
[2019-03-01] MEDS ORDERED: IBUPROFEN 600 MG TABLET (FP) PO ONE (04:42)
[2019-03-01] MEDS ORDERED: ACETAMINOPHEN 325 MG TABLET (FP) ONE (04:42)
[2019-03-01] MEDS: ACETAMINOPHEN 325 MG TABLET (FP) PO PRN ×3 (04:48→20:17)
[2019-03-01 05:05] LABS: VENOUS PC02 40.1 mmHg (38-52); VENOUS PH 7.32 (7.31-7.41)
[2019-03-01 05:09] LABS: ARTERIAL BLD GAS O2 SATURATION 21.9 % (95-98); ARTERIAL BLOOD GAS BASE EXCESS -7.3 meq/l (-2-2); ARTERIAL BLOOD GAS PCO2 69.9 mmHg (35-45); ARTERIAL BLOOD GAS pH 7.16 (7.35-7.45)
[2019-03-01 05:12] LABS: ARTERIAL BLOOD GAS PO2 < 49 mmHg (80-100)
[2019-03-01 05:20] LABS: VENOUS PO2 < 49 mmHg (28-48)
[2019-03-01] MEDS: oxyCODONE HCL 5 MG TABLET PO PRN ×3 (06:20→20:19)
[2019-03-01] MEDS: CLINDAMYCIN 600MG PREMIX IVPB 600 MG/50 ML BAG IVPB SCH (08:41)
[2019-03-01] MEDS ORDERED: DIPHTH,PERTUSS(ACELL),TET 0.5 ML DISP.SYRIN IM ONE (10:00)
[2019-03-02] MEDS: ACETAMINOPHEN 325 MG TABLET (FP) PO PRN ×4 (01:28→21:47)
[2019-03-02] MEDS: oxyCODONE HCL 5 MG TABLET PO PRN ×4 (01:29→21:46)
[2019-03-02 08:52] LABS: BASO % 0.3 % (0-2.0); EOS % 1.3 % (0-4.5); HEMATOCRIT 31.2 % (32.4-45.2); HEMOGLOBIN 10.7 GM/dL (10.7-15.3); LYMPH % 28.5 % (8-40); MCHC 34.2 g/dl (32.0-36.0); MEAN CELL VOLUME 82.1 fl (80-96); MEAN PLT VOLUME 10.5 fl (7.5-11.1); MONO % 6.5 % (3.8-10.2); NEUT % 63.4 % (42.8-82.8); PLATELET COUNT 186 K/MM3 (134-434)
[2019-03-02] MEDS ORDERED: SENNOSIDES/DOCUSATE COMBO (SENNA PLUS) TABLET (UD) PO PRN (21:19)
[2019-03-03] MEDS: oxyCODONE HCL 5 MG TABLET PO PRN ×2 (04:13→08:50)
[2019-03-03] MEDS: ACETAMINOPHEN 325 MG TABLET (FP) PO PRN ×2 (04:13→08:49)
--- NOTE | 2019-03-03 08:58 | PN ---
Post Progress Note - Subjective Subjective: Doing well. Found sitting on edge of bed eating breakfast. VB minimal, tolerating diet, passing flatus and voiding. C/O episiotomy pain/swelling. No other c/o. Type of Delivery: Vital Signs: Vital Signs Temperature 98.2 F 03/02/19 21:28 Pulse Rate 74 03/02/19 21:28 Respiratory Rate 18 03/02/19 21:28 Blood Pressure 120/76 03/02/19 21:28 O2 Sat by Pulse Oximetry (%) 100 03/01/19 03:25 Breast Exam: Yes: Soft Uterus: Yes: Fundus Firm Abdomen/GI: Yes: Abdomen soft Lochia: Yes: Rubra Lochia, amount: Small Extremities: Yes: Calves non-tender. No: Calf tenderness Perineum: Yes: Episiotomy - Labs Labs: CBC WBC 14.0 K/mm3 (4.0-10.0) H 03/02/19 07:25 RBC 3.80 M/mm3 (3.60-5.2) 03/02/19 07:25 Hgb 10.7 GM/dL (10.7-15.3) 03/02/19 07:25 Hct 31.2 % (32.4-45.2) L 03/02/19 07:25 MCV 82.1 fl (80-96) 03/02/19 07:25 MCH 28.0 pg (25.7-33.7) 03/02/19 07:25 MCHC 34.2 g/dl (32.0-36.0) 03/02/19 07:25 RDW 16.0 % (11.6-15.6) H 03/02/19 07:25 Plt Count 186 K/MM3 (134-434) 03/02/19 07:25 MPV 10.5 fl (7.5-11.1) 03/02/19 07:25 Absolute Neuts (auto) 8.8 K/mm3 (1.5-8.0) H 03/02/19 07:25 Neutrophils % 63.4 % (42.8-82.8) 03/02/19 07:25 Lymphocytes % 28.5 % (8-40) D 03/02/19 07:25 Monocytes % 6.5 % (3.8-10.2) 03/02/19 07:25 Eosinophils % 1.3 % (0-4.5) D 03/02/19 07:25 Basophils % 0.3 % (0-2.0) 03/02/19 07:25 Nucleated RBC % 0 % (0-0) 03/02/19 07:25 Problem List - Problems (1) Vaginal delivery Code(s): O80 - ENCOUNTER FOR FULL-TERM UNCOMPLICATED DELIVERY Assessment/Plan 29 y/o PPD#2 s/p normal regular diet PO pain meds routine care for discharge home today
--- NOTE | 2019-03-03 08:59 | DS ---
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 Vital Signs: Vital Signs Temperature 98.2 F 03/02/19 21:28 Pulse Rate 74 03/02/19 21:28 Respiratory Rate 18 03/02/19 21:28 Blood Pressure 120/76 03/02/19 21:28 O2 Sat by Pulse Oximetry (%) 100 03/01/19 03:25 Constitutional: Yes: Well Nourished, No Distress, Calm HENT: Yes: Atraumatic Neck: Yes: Supple Cardiovascular: Yes: Regular Rate and Rhythm Respiratory: Yes: Regular, CTA Bilaterally Gastrointestinal: Yes: Soft ....Post : Yes: Uterus firm, Uterus non-tender Neurological: Yes: Alert, Oriented Psychiatric: Yes: Alert, Oriented Labs: CBC, BMP 03/02/19 07:25 02/28/19 18:30 Delivery - Delivery Vaginal Delivery: No Problems Type of Anesthesia: Epidural Episiotomy/Laceration: Right Mediolateral EBL (cc): 300 Delivery, Single - Stages of Labor Date 1st Stage Initiatied: 03/01/19 Time 1st Stage Initiated: 23:30 Date 2nd Stage Initiated: 03/01/19 Time 2nd Stage Initiated: 02:45 Date of Delivery: 03/01/19 Time of Delivery: 03:05 Time Placenta Delivered: 03:10 Placenta: Yes: Spontaneous - Condition of Cloth Stock Sorter/Maintenance Leader Present: No Gender: Male Weight: 7 lb 14 oz Position: OA Total Hours ROM (Hrs/Mins): 10.5H - 1 Minute Total Score: 8 5 Minutes Total Score: 9 - [place] Feeding Plan Initial Plan: Elected not to breastfeed exclusively throughout hospitalization Discharge Summary Reason For Visit: LABOR Current Active Problems 38 weeks gestation of (Acute) GBS (group B Streptococcus carrier), +RV culture, currently (Acute) Spontaneous rupture of amniotic membranes (Acute) Vaginal delivery (Acute) Hospital Course: PT admitted on 02/28 with spontaneous rupture of membranes and in early labor. Pt went into spontaneous labor and had an uncomplicated on 03/01/19 (see delivery note for details). She had an uncomplicated post course and was discharged home on post day 2. - Instructions - Home Medications Comprehensive Discharge Medication List: Ambulatory Orders Prenat 115/Iron Fum/Folic/Dss [ 19 Tablet] 1 each PO DAILY 01/24/18
[2019-03-03 11:12] VITALS: BP 126/75; PULSE 78; TEMP 98.1
== END 2019-03-03 10:40 | disposition home or self-care (01) | DRG 560 ==
LOC: JLDR 17:08 → J3W 03-01 05:19
PROVIDERS: ADMIT Obstetrics & Gynecology; ATTEND Obstetrics & Gynecology
PROC: 10E0XZZ Delivery of Products of Conception, External Approach (ICD-10-PCS; principal; 2019-03-01)
PROC: 0W8NXZZ Division of Female Perineum, External Approach (ICD-10-PCS; 2019-03-01)
DX: O80 Encounter for full-term uncomplicated delivery (principal); Z3A.38 38 weeks gestation of pregnancy; Z22.330 Carrier of Group B streptococcus; Z37.0 Single live birth
CPT/HCPCS: 36415; 36600; 59409; 80048; 82803; 85025; 85610; 85730; 86593; 86850; 86900; 86901; 90715

== ENCOUNTER 2023-04-15 07:53 | Emergency (ER) | payer OTHER ==
[2023-04-15 08:05] VITALS: BP 136/92; PULSE 72; RESP 16; TEMP 97.5; BMI 24.4
[2023-04-15] MEDS ORDERED: METOCLOPRAMIDE HCL INJECTION 10 MG/2 ML VIAL IVPB ONE (09:29)
[2023-04-15] MEDS ORDERED: ACETAMINOPHEN 1000 MG/100 ML BAG IVPB ONE (09:29)
[2023-04-15] MEDS ORDERED: METOCLOPRAMIDE HCL INJECTION 10 MG/2 ML VIAL ONE (09:40)
[2023-04-15] MEDS ORDERED: ACETAMINOPHEN INJECTION 100 ML IVPB ONE (09:40)
[2023-04-15 10:40] LABS: HEMATOCRIT 37.4 % (32.4-45.2); MCH 28.2 pg (25.7-33.7); MCHC 34.9 g/dl (32.0-36.0); MEAN CELL VOLUME 80.9 fl (80-96); MEAN PLT VOLUME 9.6 fl (7.5-11.1); PLATELET COUNT 282 10^3/uL (134-434); RBC 4.62 M/mm3 (3.60-5.2); RDW 14.7 % (11.6-15.6); WHITE BLOOD COUNT 10.3 K/mm3 (4.0-10.0)
[2023-04-15 10:49] LABS: PH,URINE 5.5 (5.0-8.0); URINE APPEARANCE CLEAR; URINE BILIRUBIN NEGATIVE (NEGATIVE); URINE COLOR YELLOW; URINE GLUCOSE (UA) NEGATIVE (NEGATIVE); URINE KETONE NEGATIVE (NEGATIVE); URINE LEUK ESTERASE NEGATIVE (NEGATIVE); URINE NITRITE NEGATIVE (NEGATIVE); URINE PROTEIN NEGATIVE (NEGATIVE); URINE UROBILINOGEN 0.2 mg/dL (0.2-1.0)
[2023-04-15 10:56] LABS: HCG,QUALITATIVE URINE Negative
[2023-04-15 11:14] LABS: CHLORIDE 106 mmol/L (98-107); SODIUM 136 mmol/L (136-145)
[2023-04-15 11:16] LABS: CALCIUM 8.4 mg/dL (8.5-10.1)
[2023-04-15 11:17] LABS: ALBUMIN 3.5 g/dl (3.4-5.0); BLOOD UREA NITROGEN 13.7 mg/dL (7-18); CO2 24 mmol/L (21-32); GLUCOSE,RANDOM 76 mg/dL (74-106); MAGNESIUM 1.9 mg/dL (1.8-2.4)
[2023-04-15 11:20] LABS: CREATININE 0.8 mg/dL (0.55-1.3); PHOSPHOROUS 2.7 mg/dL (2.5-4.9); SGOT/AST 56 U/L (15-37); SGPT/ALT 24 U/L (13-61)
[2023-04-15 11:21] LABS: BILIRUBIN,TOTAL 1.2 mg/dL (0.2-1); TOT PROT 7.1 g/dl (6.4-8.2)
[2023-04-15 11:22] LABS: ALK PHOS 83 U/L (45-117)
[2023-04-15 11:25] LABS: N-TERMINAL BNP 372.3 pg/ml (5-125)
[2023-04-15 11:44] LABS: ANION GAP 6 mmol/L (4-13); POTASSIUM 6.4 mmol/L (3.5-5.1)
[2023-04-15 13:03] LABS: CALCIUM 8.2 mg/dL (8.5-10.1)
[2023-04-15 13:04] LABS: BLOOD UREA NITROGEN 12.2 mg/dL (7-18)
[2023-04-15 13:07] LABS: CREATININE 0.7 mg/dL (0.55-1.3)
== END 2023-04-15 14:00 | disposition home or self-care (01) ==
LOC: JERFT 07:53
PROC: 3E033NZ Introduction of Analgesics, Hypnotics, Sedatives into Peripheral Vein, Percutaneous Approach (ICD-10-PCS; principal; 2023-04-15)
PROC: 3E033GC Introduction of Other Therapeutic Substance into Peripheral Vein, Percutaneous Approach (ICD-10-PCS; 2023-04-15)
DX: R60.0 Localized edema (principal); M79.89 Other specified soft tissue disorders; R51.9 Headache, unspecified; D72.829 Elevated white blood cell count, unspecified; R20.2 Paresthesia of skin; Z20.822 Contact with and (suspected) exposure to COVID-19
CPT/HCPCS: 0241U-QW; 36415; 80048; 80053; 81003; 82550; 82553; 83735; 83880; 84100; 84703; 85027; 93970-TC; 99284-25